=== PATIENT | male | born 1950 | race Caucasian/White ===

== ENCOUNTER → 2017-08-04 | Outpatient (CLI) | payer MEDICARE ==
[~2017-08-04] MED LIST: CLARITIN10 MG PO; HYDROCODONE BIT1 T11 PO; KEFLEX500 M1 PO; MEDROL DOSEPAK4 MG PO; NAPROSYN500 MG PO
[2017-08-05 08:13] LABS: HEPATITIS B SURFACE AG Negative (Negative); HEPATITIS C VIRUS ANTIBODY <0.1 s/co (0.0-0.9)
== END | disposition home or self-care (01) ==
LOC: LAB 08:58
PROVIDERS: Specialist
DX: R53.83 Other fatigue (principal); Z79.899 Other long term (current) drug therapy

== ENCOUNTER 2017-08-24 13:12 | Inpatient (IN) | payer MEDICARE ==
[~2017-08-24] VITALS: Ht 172.7 cm; Wt 82.8 kg
--- NOTE | ~2017-08-24 | WRIGHTHP ---
[place], [place] PATIENT HISTORY AND PHYSICAL EXAM NAME: YONI HARRIS [facility] #: [id number] UNIT #: [id number] ROOM: 403 DOCTOR: LORENA MEDINA MD BIRTHDATE: [birth year] DOS: HISTORY OF PRESENT ILLNESS: The patient is 67-year-old, comes in with inability to walk. He underwent surgery on the , which was a fluoroscopic surgery of the left third digit of hand by Dr. Reyna at [place]. The patient states he has been having some discomfort in the left foot for a few days now. He thought it was gout and had taken his medications, but by Thursday morning he was unable to walk. He was unable to put any weight on his feet and he had to be brought, in wheeled in a wheelchair. He denies having any chest pains or palpitations. He does not have any fever, but he noticed some chills. Denies having any nausea, any emesis. PAST MEDICAL HISTORY: Significant for: 1. Psoriasis. 2. Psoriatic arthritis. 3. Gouty arthropathy with hyperuricemia. 4. Benign hypertension. 5. Primary osteoarthritis of digits. MEDICATIONS: That he is on are allopurinol, amlodipine, aspirin, hydrochlorothiazide, indomethacin, lisinopril, lovastatin, multivitamin, omeprazole, potassium, tamsulosin and vitamin D. SOCIAL HISTORY: Nonsmoker. PHYSICAL EXAMINATION: GENERAL: He is awake and alert and oriented. VITAL SIGNS: Blood pressure is 118/82, pulse of 78, respirations 20, temperature 99.1. LUNGS: Diminished breath sounds. No wheezes, rales or rhonchi heard. HEART: Regular. ABDOMEN: Obese, soft, nontender. EXTREMITIES: No swelling in the right foot. Left hand wrapped up and left foot is extremely swollen, red very warm to touch and quite painful including the left first metatarsal joint. ASSESSMENT AND PLAN: 1. Possible gouty arthropathy. The patient is ordered Indocin and IV steroids. 2. We will need to rule out osteomyelitis. ESR, CRP as well as an MRI of the left foot have been ordered. Of note is a white cell count is normal. 3. History of hyperuricemia. Continue allopurinol. 4. Benign hypertension, controlled. 5. History of psoriatic arthritis. The patient was on Enbrel for a long time, was discontinued a month ago because it was too expensive. This may have caused worsening of his symptoms. [place], [place] PATIENT HISTORY AND PHYSICAL EXAM NAME: YONI HARRIS UNIT #: [id number] ROOM: 403 DOCTOR: LORENA MEDINA MD BIRTHDATE: [birth year] LORENA MEDINA MD CM:HISPHYS:PATIENT HISTORY AND PHYSICAL EXAMINATION [id number] LORENA MEDINA MD 08/25/17 1219 interface
--- NOTE | ~2017-08-24 | DS ---
[place], [place] DISCHARGE SUMMARY NAME: YONI HARRIS [facility] #: [id number] UNIT #: [id number] ROOM: 403 DOCTOR: LORENA MEDINA MD BIRTHDATE: [birth year] DOS: 08/26/2017 DIAGNOSES: 1. Acute gouty arthropathy, left foot. 2. History of psoriasis with psoriatic arthritis. 3. Hyperuricemia. 4. Benign hypertension. 5. Primary osteoarthritis of the digits, status post fluoroscopy surgery of the third digit last week. DISCHARGE MEDICATIONS: Prednisone tapering dose down to 2.5 mg daily, omeprazole 20 daily, lisinopril 5 b.i.d., hydrochlorothiazide 12.5 daily, Flomax 0.4 daily, allopurinol 100 daily, vitamin D 400 units daily, aspirin 81 daily, amlodipine 5 daily, lovastatin 10 daily, potassium 99 mg daily, multivitamin 1 tablet daily, and indomethacin 25 mg twice daily for 5 days. HOSPITAL COURSE: The patient is 67 years old, very well known to us, comes in with extreme pain in his left foot, inability to walk. In fact, he had to crawl into the bathroom and he was wheeled into the office because he was unable to walk. After the evaluation, was found to have significant swelling and redness of the left foot and the suspicion of osteomyelitis was admitted to the patient. After admission, the patient underwent MRI of the leg, CRP, ESR as well as complete blood work and also was placed on IV steroids as well as Indocin. Within 24 hours, the patient's symptoms have improved remarkably and he is finally able to walk without much difficulty. Dr. Fay was consulted who agreed on the treatment plan. The patient is stable this morning. The plan is to discharge him to home today. Follow up as an outpatient. LORENA MEDINA MD CM:DB 2 5 LORENA MEDINA MD 08/26/17926 interface
[2017-08-24 13:30] VITALS: BP 138/99
--- NOTE | 2017-08-24 14:56 | NUR ---
Time: 1414 A 67 year old MALE admitted to under services of DR. ADAM SMITH,LORENA. Pt. arrived via wheel chair from [place]. Chief complaint: PATIENT COMPLAINS OF PAIN, EDEMA AND WARMTH IN LEFT FOOT AND TOES. LUIS HEAD
[2017-08-24 16:00] VITALS: BP 131/78
[2017-08-24] MEDS ORDERED: PRILOSEC20 M1 PO (16:21)
[2017-08-24] MEDS ORDERED: ZESTRIL,PRINIVIL5 MG PO (16:23)
[2017-08-24] MEDS ORDERED: HYDR25T PO (16:25)
[2017-08-24] MEDS ORDERED: FLOMAX0.4 MG PO (16:26)
[2017-08-24] MEDS ORDERED: ZYLOPRIM100 MG PO (16:27)
[2017-08-24] MEDS ORDERED: VITAMIN D400 I1 PO (16:29)
[2017-08-24] MEDS ORDERED: ALEVE220 MG PO (16:30)
--- NOTE | 2017-08-24 16:30 | NUR ---
DR MEDINA WAS NOTIFIED THAT PATIENTS MEDICATION LLIST WAS IN THE CHART FOR APPROVAL. DR MEDINA ACKNOWLEDGED AND STATED TO GET A CBC. CMP, ESR AND CRP IN AM, REG DIET, MRI OF LEFT FOOT, INDOCIN 25MG BID, SOLUMEDROL 30MG BID AND CONSULT DR TORRES. JANINA PLACED IN CHART.
[2017-08-24] MEDS ORDERED: ASPIRIN CHILDRE81 MG PO (16:32)
[2017-08-24] MEDS ORDERED: NORVASC5 MG PO (16:33)
[2017-08-24] MEDS ORDERED: LOVASTATIN10 MG PO (16:34)
[2017-08-24] MEDS ORDERED: POTASSIUM99 M5 PO (16:35)
[2017-08-24] MEDS ORDERED: THERA-TABS1 EACH PO (16:42)
--- NOTE | 2017-08-24 17:00 | NUR ---
DR TORRES WAS CALLED FOR THE CONSULT, NO ANSWER AND NO MESSAGE LEFT D/T NO ANSWERING MACHINE.
[2017-08-24] MEDS ORDERED: INDOMETHACIN25 M1 PO (17:10)
[2017-08-24] MEDS ORDERED: SOLU-MEDRO40 MG/1 ML PO (17:13)
[2017-08-24 20:00] VITALS: BP 114/64
--- NOTE | 2017-08-24 20:45 | NUR ---
DR. MEDINA NOTIFIED OF PT REQUESTING PAIN MED. N.O. RCVD FOR TORADOL 30MG IVP X1 NOW, NORCO 7.5MG PO QID PRN PAIN, AND TO CHANGE ESR, CRP LABS TO STAT.
--- NOTE | 2017-08-24 21:10 | NUR ---
PT MEDICATED WITH ONE TIME DOSE OF TORADOL IVP ORDERED FOR C/O LEFT FOOT PAIN 02/28. WILL CONT. TO MONITOR.
--- NOTE | 2017-08-24 22:46 | NUR ---
PT STATES THAT LEFT FOOT PAIN IS NOW 3/10. RESTING COMFORTABLY IN BED.
[2017-08-25] VITALS: BP 118/82
--- NOTE | 2017-08-25 04:45 | NUR ---
24 HR chart check completed.
--- NOTE | 2017-08-25 06:32 | NUR ---
DR. TORRES'S ANSWERING SERVICE CALLED WITH NEW CONSULT.
[2017-08-25 06:41] LABS: BASO % 0.3 % (0.0-1.0); HEMOGLOBIN 13.9 g/dl (14.0-18.0); LYMPH # 0.7 10*3/uL (1.3-4.4); LYMPH % 8.5 % (27.0-41.0); MEAN CORPUSCULAR HGB 31.9 pg (27.0-31.0); MEAN CORPUSCULAR HGB CONC 33.9 g/dl (33.0-37.0); MEAN PLATELET VOLUME 8.9 fl (9.6-12.3); MONO # 0.2 10*3/uL (0.1-1.0); NEUT % 87.9 % (47.0-73.0); PLATELET COUNT AUTOMATED 474 10*3/uL (130-400); RED BLOOD COUNT 4.36 10*6/uL (4.50-5.90); RED CELL DISTRI WIDTH 12.6 % (0-14.5)
[2017-08-25 07:03] LABS: ALBUMIN 3.1 gm/dl (3.1-4.5); ALKALINE PHOSPHATASE 74 U/L (45-117); BUN 18 mg/dl (7-24); CHLORIDE 99 mmol/L (98-107); CREATININE 0.91 mg/dL (0.70-1.30); POTASSIUM 4.4 mmol/L (3.5-5.1); SGOT/AST 14 IU/L (3-35); SGPT/ALT 23 U/L (12-78); SODIUM 137 mmol/L (136-145); TOTAL PROTEIN 7.4 gm/dL (6.4-8.2)
[2017-08-25 08:00] VITALS: BP 137/89
--- NOTE | 2017-08-25 08:30 | NUR ---
Regrader in to talk to patient. Patient states lives at HOME with HIS IWFE. There are 6 steps in the home. Physician: DR MEDINA Pharmacy: [facility] Home health services: NONE Patient's level of ADLs: INDEPENDENT Patient has working utilities: YES DME: [facility] Follow-up physician's appointment after d/c: PREFERS TO MAKE HIS OWN APPT Does patient want to access PORTAL?: Discharge plan HOME. GERMAINE DIOR I HAVE ASKED DIETARY TO GIVE PT INSTRUCTIONS FOR FOODS TO AVOID WITH GOUT
--- NOTE | 2017-08-25 15:40 | NUR ---
Nutritional Support Services Note: Discussing with pt diet for gout. Copy given and discussed with pt. Pt drinks alcohol daily, discouraged alcohol use. Encouraged follow up if needed. Risa Arredondo
[2017-08-25 16:00] VITALS: BP 129/78
[2017-08-26] VITALS: BP 130/68
--- NOTE | 2017-08-26 04:03 | NUR ---
PATIENT ASLEEP IN BED AT THIS TIME. RESPIRATIONS EASY. NO S/S OF DISTRESS NOTED. WILL MONITOR. CALL LIGHT LEFT IN REACH.
[2017-08-26 08:00] VITALS: BP 134/75
[2017-08-26] MEDS ORDERED: PREDNISONE5 MG PO (08:11)
[2017-08-26] MEDS ORDERED: INDOMETHACIN25 M1 PO (08:11)
--- NOTE | 2017-08-26 10:40 | NUR ---
Discharge instructions reviewed with patient/family. Patient receptive and verbalizes understanding. Follow-up care arranged. Written instructions given to patient/family. SUZETTE HERNANDEZ
== END 2017-08-26 10:40 | disposition home or self-care (01) | DRG 554 ==
LOC: 4E 13:12
PROVIDERS: ADMIT Internal Medicine
DX: M10.072 Idiopathic gout, left ankle and foot (principal); L40.50 Arthropathic psoriasis, unspecified; M86.8X7 Other osteomyelitis, ankle and foot; I10 Essential (primary) hypertension; M19.049 Primary osteoarthritis, unspecified hand; Z91.09 Other allergy status, other than to drugs and biological substances; Z79.82 Long term (current) use of aspirin; Z79.899 Other long term (current) drug therapy

== ENCOUNTER → 2017-11-11 | Outpatient (CLI) | payer MEDICARE ==
[~2017-11-11] MED LIST changes: +ALEVE220 MG PO; +ASPIRIN CHILDRE81 MG PO; +FLOMAX0.4 MG PO; +HYDR25T PO; +INDOMETHACIN25 M1 PO; +LOVASTATIN10 MG PO; +NORVASC5 MG PO; +POTASSIUM99 M5 PO; +PREDNISONE5 MG PO; +PRILOSEC20 M1 PO; +SOLU-MEDRO40 MG/1 ML PO; +THERA-TABS1 EACH PO; +VITAMIN D400 I1 PO; +ZESTRIL,PRINIVIL5 MG PO; +ZYLOPRIM100 MG PO
== END | disposition home or self-care (01) ==
LOC: RAD 14:38
DX: M16.12 Unilateral primary osteoarthritis, left hip (principal); M16.11 Unilateral primary osteoarthritis, right hip; M19.072 Primary osteoarthritis, left ankle and foot; M10.9 Gout, unspecified; M79.672 Pain in left foot

== ENCOUNTER → 2018-02-05 | Outpatient (CLI) | payer MEDICARE ==
[2018-02-05 13:52] LABS: URIC ACID 6.1 mg/dL (3.5-7.2)
[2018-02-06 05:11] LABS: TOTAL PROTEIN, SERUM 6.5 g/dL (6.0-8.5)
[2018-02-08 15:07] LABS: A/G RATIO 1.3 (0.7-1.7); ALBUMIN 3.7 g/dL (2.9-4.4); ALPHA-1-GLOBULIN 0.2 g/dL (0.0-0.4); ALPHA-2-GLOBULIN 0.7 g/dL (0.4-1.0); BETA GLOBULIN 1.1 g/dL (0.7-1.3); GAMMA GLOBULIN 0.8 g/dL (0.4-1.8); GLOBULIN, TOTAL 2.8 g/dL (2.2-3.9); M-SPIKE Not Observed g/dL (Not Observed)
[2018-02-10 10:04] LABS: HLA-B27 ANTIGEN Negative (.)
== END | disposition home or self-care (01) ==
LOC: LAB 13:03
PROVIDERS: Internal Medicine Rheumatology
DX: M19.031 Primary osteoarthritis, right wrist (principal); M16.0 Bilateral primary osteoarthritis of hip; M19.072 Primary osteoarthritis, left ankle and foot; M19.071 Primary osteoarthritis, right ankle and foot; M25.552 Pain in left hip; M25.551 Pain in right hip; E79.0 Hyperuricemia without signs of inflammatory arthritis and tophaceous disease; L40.9 Psoriasis, unspecified

== ENCOUNTER → 2018-07-23 | Outpatient (CLI) | payer MEDICARE ==
[2018-07-23 16:21] LABS: BASO # 0.1 10*3/uL (0.0-0.1); BASO % 1.1 % (0.0-1.0); EOS # 0.3 10*3/uL (0.0-0.4); EOS % 3.9 % (1.0-4.0); HEMATOCRIT 40.3 % (42.0-52.0); HEMOGLOBIN 13.8 g/dl (14.0-18.0); LYMPH # 1.5 10*3/uL (1.3-4.4); LYMPH % 20.2 % (27.0-41.0); MEAN CELL VOLUME 95.7 fl (80.0-94.0); MEAN CORPUSCULAR HGB 32.8 pg (27.0-31.0); MEAN CORPUSCULAR HGB CONC 34.2 g/dl (33.0-37.0); MEAN PLATELET VOLUME 9.3 fl (9.6-12.3); MONO # 0.7 10*3/uL (0.1-1.0); NEUT # 4.9 10*3/uL (2.3-7.9); NEUT % 65.7 % (47.0-73.0); PLATELET COUNT AUTOMATED 484 10*3/uL (130-400); RED BLOOD COUNT 4.21 10*6/uL (4.50-5.90); RED CELL DISTRI WIDTH 13.6 % (0-14.5); WHITE BLOOD COUNT 7.5 10*3/uL (4.8-10.8)
[2018-07-23 16:49] LABS: ALBUMIN 3.8 gm/dl (3.1-4.5); ALKALINE PHOSPHATASE 60 U/L (45-117); BILIRUBIN, DIRECT 0.1 mg/dL (0.0-0.2); BUN 16 mg/dl (7-24); CHLORIDE 104 mmol/L (98-107); CREATININE 0.82 mg/dL (0.70-1.30); POTASSIUM 3.9 mmol/L (3.5-5.1); SGOT/AST 21 IU/L (3-35); SGPT/ALT 29 U/L (12-78); SODIUM 141 mmol/L (136-145); TOTAL PROTEIN 6.9 gm/dL (6.4-8.2)
[2018-07-24 07:06] LABS: HEPATITIS B SURFACE AG Negative (Negative); HEPATITIS C VIRUS ANTIBODY <0.1 s/co (0.0-0.9)
[2018-07-29 06:10] LABS: TB1 Ag VALUE 0.02 IU/mL (.)
== END | disposition home or self-care (01) ==
LOC: LAB 15:08
PROVIDERS: Specialist
DX: R53.83 Other fatigue (principal); Z79.899 Other long term (current) drug therapy

== ENCOUNTER → 2019-05-13 | Outpatient (CLI) | payer MEDICARE | END | disposition home or self-care (01) | LOC: MRI 10:00 | DX: R51 Headache (principal); R42 Dizziness and giddiness; R26.89 Other abnormalities of gait and mobility; I10 Essential (primary) hypertension; I67.82 Cerebral ischemia ==

== ENCOUNTER → 2019-05-19 | Outpatient (CLI) | payer MEDICARE | END | disposition home or self-care (01) | LOC: US 13:56 | DX: I65.23 Occlusion and stenosis of bilateral carotid arteries (principal) ==

== ENCOUNTER → 2019-07-07 | Outpatient (CLI) | payer MEDICARE ==
[2019-07-07 14:13] LABS: BASO # 0.1 10*3/uL (0.0-0.1); BASO % 1.2 % (0.0-1.0); EOS # 0.3 10*3/uL (0.0-0.4); EOS % 3.4 % (1.0-4.0); HEMATOCRIT 42.7 % (42.0-52.0); HEMOGLOBIN 14.3 g/dl (14.0-18.0); LYMPH # 1.5 10*3/uL (1.3-4.4); LYMPH % 20.7 % (27.0-41.0); MEAN CELL VOLUME 97.9 fl (80.0-94.0); MEAN CORPUSCULAR HGB 32.8 pg (27.0-31.0); MEAN CORPUSCULAR HGB CONC 33.5 g/dl (33.0-37.0); MEAN PLATELET VOLUME 9.5 fl (9.6-12.3); MONO # 0.6 10*3/uL (0.1-1.0); MONO % 8.7 % (3.0-9.0); NEUT # 4.9 10*3/uL (2.3-7.9); NEUT % 65.9 % (47.0-73.0); PLATELET COUNT AUTOMATED 547 10*3/uL (130-400); RED BLOOD COUNT 4.36 10*6/uL (4.50-5.90); RED CELL DISTRI WIDTH 13.2 % (0-14.5); WHITE BLOOD COUNT 7.4 10*3/uL (4.8-10.8)
[2019-07-07 14:28] LABS: ALBUMIN 3.7 gm/dl (3.1-4.5); BILIRUBIN, DIRECT 0.1 mg/dL (0.0-0.2); TOTAL PROTEIN 6.7 gm/dL (6.4-8.2)
[2019-07-07 14:29] LABS: ALBUMIN 3.7 gm/dl (3.1-4.5); BUN 15 mg/dl (7-24); CHLORIDE 104 mmol/L (98-107); CHOLESTEROL 146 mg/dL (<200); CREATININE 0.75 mg/dL (0.70-1.30); POTASSIUM 3.5 mmol/L (3.5-5.1); SGOT/AST 27 IU/L (3-35); SGPT/ALT 27 U/L (12-78); SODIUM 138 mmol/L (136-145); TOTAL PROTEIN 6.7 gm/dL (6.4-8.2); TRIGLYCERIDES 263 mg/dl (<150); VLDL CHOLESTEROL 53 mg/dL (6-40)
[2019-07-07 14:35] LABS: ALKALINE PHOSPHATASE 60 U/L (45-117); FREE T4 0.93 ng/dl (0.76-1.46); HDL CHOLESTEROL 40 mg/dl (40-60); LDL CHOLESTEROL 53 mg/dL (9-159); THYROID STIM HORMONE (HS) 0.807 uIU/ml (0.358-4.75)
[2019-07-07 14:52] LABS: VITAMIN D, 25-HYDROXY 24.8 ng/mL (30-100)
[2019-07-08 07:05] LABS: HEPATITIS B SURFACE AG Negative (Negative); HEPATITIS C VIRUS ANTIBODY 0.1 s/co (0.0-0.9)
[2019-07-10 01:06] LABS: TB1 Ag VALUE 0.02 IU/mL (.)
== END | disposition home or self-care (01) ==
LOC: LAB 12:36
PROVIDERS: Internal Medicine; Specialist
DX: Z12.5 Encounter for screening for malignant neoplasm of prostate (principal); I10 Essential (primary) hypertension; E78.2 Mixed hyperlipidemia; E55.9 Vitamin D deficiency, unspecified; D52.9 Folate deficiency anemia, unspecified; D51.9 Vitamin B12 deficiency anemia, unspecified; R53.83 Other fatigue; Z79.899 Other long term (current) drug therapy

== ENCOUNTER → 2020-07-11 | Outpatient (CLI) | payer MEDICARE ==
[2020-07-11 09:32] LABS: ALBUMIN 3.7 gm/dl (3.1-4.5); BUN 21 mg/dl (7-24); CHLORIDE 103 mmol/L (98-107); POTASSIUM 4.1 mmol/L (3.5-5.1); SODIUM 138 mmol/L (136-145)
[2020-07-11 09:33] LABS: BASO # 0.1 10*3/uL (0.0-0.1); BASO % 0.7 % (0.0-1.0); EOS # 0.2 10*3/uL (0.0-0.4); EOS % 1.9 % (1.0-4.0); HEMATOCRIT 45.6 % (42.0-52.0); LYMPH # 1.4 10*3/uL (1.3-4.4); LYMPH % 15.9 % (27.0-41.0); MEAN CELL VOLUME 94.4 fl (80.0-94.0); MEAN CORPUSCULAR HGB 32.3 pg (27.0-31.0); MEAN CORPUSCULAR HGB CONC 34.2 g/dl (33.0-37.0); MEAN PLATELET VOLUME 8.7 fl (9.6-12.3); MONO # 0.8 10*3/uL (0.1-1.0); MONO % 9.8 % (3.0-9.0); NEUT # 6.1 10*3/uL (2.3-7.9); NEUT % 71.5 % (47.0-73.0); PLATELET COUNT AUTOMATED 715 10*3/uL (130-400); RED BLOOD COUNT 4.83 10*6/uL (4.50-5.90); RED CELL DISTRI WIDTH 12.9 % (0-14.5); WHITE BLOOD COUNT 8.6 10*3/uL (4.8-10.8)
[2020-07-11 09:37] LABS: VITAMIN D, 25-HYDROXY 46.8 ng/mL (30-100)
[2020-07-11 09:42] LABS: ALKALINE PHOSPHATASE 71 U/L (45-117); CHOLESTEROL 177 mg/dL (<200); CREATININE 0.82 mg/dL (0.70-1.30); HDL CHOLESTEROL 50 mg/dl (40-60); LDL CHOLESTEROL 83 mg/dL (9-159); SGOT/AST 23 IU/L (3-35); SGPT/ALT 41 U/L (12-78); T3 UPTAKE 38 % (31-39); THYROID STIM HORMONE (HS) 0.982 uIU/ml (0.358-4.75); THYROXINE (T4) TOTAL 6.7 ug/dl (4.5-12.1); TOTAL PROTEIN 7.6 gm/dL (6.4-8.2); TRIGLYCERIDES 220 mg/dl (<150); VLDL CHOLESTEROL 44 mg/dL (6-40)
== END | disposition home or self-care (01) ==
LOC: LAB 08:15
PROVIDERS: ATTEND Internal Medicine
DX: Z12.5 Encounter for screening for malignant neoplasm of prostate (principal); Z00.00 Encounter for general adult medical examination without abnormal findings; I10 Essential (primary) hypertension; D51.9 Vitamin B12 deficiency anemia, unspecified; E78.2 Mixed hyperlipidemia; E55.9 Vitamin D deficiency, unspecified; N40.1 Benign prostatic hyperplasia with lower urinary tract symptoms

== ENCOUNTER → 2020-07-20 | Outpatient (CLI) | payer MEDICARE ==
[2020-07-21 08:07] LABS: HEP B CORE AB, IGM Negative (Negative); HEPATITIS B SURFACE AG Negative (Negative); HEPATITIS C VIRUS ANTIBODY <0.1 s/co (0.0-0.9)
[2020-07-24 21:10] LABS: TB1 Ag VALUE 0.03 IU/mL (.)
== END | disposition home or self-care (01) ==
LOC: LAB 14:02
PROVIDERS: ATTEND Specialist
DX: R53.83 Other fatigue (principal); Z79.899 Other long term (current) drug therapy

== ENCOUNTER → 2021-02-04 | Outpatient (CLI) | payer MEDICARE | END | disposition home or self-care (01) | LOC: LAB 11:53 | PROVIDERS: ATTEND Internal Medicine | DX: L40.52 Psoriatic arthritis mutilans (principal) ==

== ENCOUNTER → 2021-02-12 | Outpatient (CLI) | payer MEDICARE | END | disposition home or self-care (01) | LOC: LAB 15:26 | PROVIDERS: ATTEND Internal Medicine | DX: A69.20 Lyme disease, unspecified (principal) ==

== ENCOUNTER → 2021-04-22 | Outpatient (CLI) | payer MEDICARE ==
[2021-04-23 08:08] LABS: RHEUMATOID ARTHRITIS FACTOR <10.0 IU/mL (0.0-13.9)
[2021-04-23 13:06] LABS: ANTI-DSDNA ANTIBODIES <1 IU/mL (0-9)
[2021-04-24 00:06] LABS: CCP ANTIBODIES IGG/IGA 7 units (0-19)
== END | disposition home or self-care (01) ==
LOC: LAB 15:32
PROVIDERS: ATTEND Internal Medicine
DX: M19.012 Primary osteoarthritis, left shoulder (principal); I10 Essential (primary) hypertension; L40.9 Psoriasis, unspecified; M17.11 Unilateral primary osteoarthritis, right knee; M06.9 Rheumatoid arthritis, unspecified; R70.0 Elevated erythrocyte sedimentation rate; R76.0 Raised antibody titer; M21.822 Other specified acquired deformities of left upper arm; M25.561 Pain in right knee; M25.562 Pain in left knee

== ENCOUNTER → 2021-06-13 | Outpatient (CLI) | payer MEDICARE ==
[2021-06-13 10:49] LABS: BASO # 0.1 10*3/uL (0.0-0.1); BASO % 1.1 % (0.0-1.0); EOS # 0.1 10*3/uL (0.0-0.4); EOS % 1.5 % (1.0-4.0); HEMATOCRIT 41.3 % (42.0-52.0); LYMPH # 1.3 10*3/uL (1.3-4.4); LYMPH % 15.9 % (27.0-41.0); MEAN CELL VOLUME 96.7 fl (80.0-94.0); MEAN CORPUSCULAR HGB 32.6 pg (27.0-31.0); MEAN CORPUSCULAR HGB CONC 33.7 g/dl (33.0-37.0); MEAN PLATELET VOLUME 8.4 fl (9.6-12.3); MONO # 0.7 10*3/uL (0.1-1.0); MONO % 8.8 % (3.0-9.0); NEUT # 5.9 10*3/uL (2.3-7.9); NEUT % 72.3 % (47.0-73.0); PLATELET COUNT AUTOMATED 598 10*3/uL (130-400); RED BLOOD COUNT 4.27 10*6/uL (4.50-5.90); RED CELL DISTRI WIDTH 13.5 % (0-14.5); WHITE BLOOD COUNT 8.2 10*3/uL (4.8-10.8)
[2021-06-13 11:23] LABS: ALBUMIN 3.6 gm/dl (3.1-4.5); BUN 15 mg/dl (7-24); CHLORIDE 104 mmol/L (98-107); POTASSIUM 3.3 mmol/L (3.5-5.1); SGOT/AST 16 IU/L (3-35); SGPT/ALT 33 U/L (12-78); SODIUM 140 mmol/L (136-145)
[2021-06-13 11:24] LABS: ALKALINE PHOSPHATASE 62 U/L (45-117); TOTAL PROTEIN 6.9 gm/dL (6.4-8.2)
[2021-06-14 09:07] LABS: HEP B CORE AB, IGM Negative (Negative); HEPATITIS B SURFACE AG Negative (Negative); HEPATITIS C VIRUS ANTIBODY <0.1 s/co (0.0-0.9)
[2021-06-17 15:06] LABS: TB1 Ag VALUE 0.03 IU/mL (.)
== END | disposition home or self-care (01) ==
LOC: LAB 10:29
PROVIDERS: ATTEND Specialist
DX: A63.0 Anogenital (venereal) warts (principal); R53.83 Other fatigue

== ENCOUNTER → 2022-10-29 | Outpatient (CLI) | payer MEDICARE ==
[2022-10-29 08:32] LABS: BASO # 0.1 10*3/uL (0.0-0.1); BASO % 1.2 % (0.0-1.0); EOS # 0.3 10*3/uL (0.0-0.4); EOS % 4.3 % (1.0-4.0); HEMATOCRIT 42.7 % (42.0-52.0); LYMPH # 1.8 10*3/uL (1.3-4.4); LYMPH % 26.6 % (27.0-41.0); MEAN CELL VOLUME 96.6 fl (80.0-94.0); MEAN CORPUSCULAR HGB CONC 34.2 g/dl (33.0-37.0); MEAN PLATELET VOLUME 8.4 fl (9.6-12.3); MONO # 0.7 10*3/uL (0.1-1.0); MONO % 10.8 % (3.0-9.0); NEUT # 3.9 10*3/uL (2.3-7.9); NEUT % 56.8 % (47.0-73.0); PLATELET COUNT AUTOMATED 543 10*3/uL (130-400); RED BLOOD COUNT 4.42 10*6/uL (4.50-5.90); RED CELL DISTRI WIDTH 13.2 % (0-14.5); WHITE BLOOD COUNT 6.8 10*3/uL (4.8-10.8)
[2022-10-29 08:45] LABS: ALKALINE PHOSPHATASE 56 U/L (46-116); BUN 21 mg/dl (9-23); CHLORIDE 99 mmol/L (98-107); LDH 218 U/L (120-246); POTASSIUM 4.6 mmol/L (3.4-5.1); SGPT/ALT 36 U/L (10-49); TOTAL PROTEIN 6.5 gm/dL (6.0-8.0)
== END | disposition home or self-care (01) ==
LOC: LAB 07:54
PROVIDERS: Internal Medicine Hematology & Oncology; ATTEND Internal Medicine
DX: I10 Essential (primary) hypertension (principal); D75.839 Thrombocytosis, unspecified

== ENCOUNTER → 2022-11-26 | Outpatient (CLI) | payer MEDICARE | END | disposition home or self-care (01) | LOC: US 00:48 | PROVIDERS: ATTEND Internal Medicine Hematology & Oncology | DX: D75.839 Thrombocytosis, unspecified (principal) ==

== ENCOUNTER → 2022-12-04 | Outpatient (CLI) | payer MEDICARE ==
[2022-12-04 16:00] LABS: BASO # 0.1 10*3/uL (0.0-0.1); BASO % 1.1 % (0.0-1.0); EOS # 0.2 10*3/uL (0.0-0.4); EOS % 2.7 % (1.0-4.0); HEMATOCRIT 39.3 % (42.0-52.0); LYMPH # 2.1 10*3/uL (1.3-4.4); LYMPH % 29.6 % (27.0-41.0); MEAN CELL VOLUME 95.4 fl (80.0-94.0); MEAN CORPUSCULAR HGB 33.7 pg (27.0-31.0); MEAN CORPUSCULAR HGB CONC 35.4 g/dl (33.0-37.0); MEAN PLATELET VOLUME 8.4 fl (9.6-12.3); MONO # 0.6 10*3/uL (0.1-1.0); NEUT # 4.1 10*3/uL (2.3-7.9); NEUT % 57.5 % (47.0-73.0); PLATELET COUNT AUTOMATED 622 10*3/uL (130-400); RED BLOOD COUNT 4.12 10*6/uL (4.50-5.90); RED CELL DISTRI WIDTH 13.4 % (0-14.5); WHITE BLOOD COUNT 7.1 10*3/uL (4.8-10.8)
== END | disposition home or self-care (01) ==
LOC: LAB 15:20
PROVIDERS: ATTEND Physician Assistant
DX: D47.3 Essential (hemorrhagic) thrombocythemia (principal); D75.839 Thrombocytosis, unspecified

== ENCOUNTER → 2022-12-12 | Outpatient (CLI) | payer MEDICARE ==
[2022-12-12 11:44] LABS: BASO # 0.1 10*3/uL (0.0-0.1); BASO % 1.4 % (0.0-1.0); EOS # 0.2 10*3/uL (0.0-0.4); EOS % 3.6 % (1.0-4.0); HEMATOCRIT 38.3 % (42.0-52.0); LYMPH # 1.8 10*3/uL (1.3-4.4); LYMPH % 29.9 % (27.0-41.0); MEAN CELL VOLUME 97.7 fl (80.0-94.0); MEAN CORPUSCULAR HGB 33.7 pg (27.0-31.0); MEAN CORPUSCULAR HGB CONC 34.5 g/dl (33.0-37.0); MEAN PLATELET VOLUME 8.5 fl (9.6-12.3); MONO # 0.5 10*3/uL (0.1-1.0); MONO % 8.1 % (3.0-9.0); NEUT # 3.4 10*3/uL (2.3-7.9); NEUT % 56.8 % (47.0-73.0); PLATELET COUNT AUTOMATED 533 10*3/uL (130-400); RED BLOOD COUNT 3.92 10*6/uL (4.50-5.90); RED CELL DISTRI WIDTH 14.4 % (0-14.5); WHITE BLOOD COUNT 5.9 10*3/uL (4.8-10.8)
== END | disposition home or self-care (01) ==
LOC: LAB 11:01
PROVIDERS: ATTEND Physician Assistant
DX: D47.3 Essential (hemorrhagic) thrombocythemia (principal); D75.839 Thrombocytosis, unspecified

== ENCOUNTER → 2022-12-18 | Outpatient (CLI) | payer MEDICARE ==
[2022-12-18 09:02] LABS: BASO # 0.1 10*3/uL (0.0-0.1); BASO % 1.2 % (0.0-1.0); EOS # 0.2 10*3/uL (0.0-0.4); EOS % 3.7 % (1.0-4.0); HEMATOCRIT 40.1 % (42.0-52.0); LYMPH # 1.7 10*3/uL (1.3-4.4); LYMPH % 30.5 % (27.0-41.0); MEAN CELL VOLUME 96.4 fl (80.0-94.0); MEAN CORPUSCULAR HGB 33.9 pg (27.0-31.0); MEAN CORPUSCULAR HGB CONC 35.2 g/dl (33.0-37.0); MEAN PLATELET VOLUME 8.5 fl (9.6-12.3); MONO # 0.6 10*3/uL (0.1-1.0); MONO % 10.9 % (3.0-9.0); NEUT % 53.3 % (47.0-73.0); PLATELET COUNT AUTOMATED 584 10*3/uL (130-400); RED BLOOD COUNT 4.16 10*6/uL (4.50-5.90); RED CELL DISTRI WIDTH 15.3 % (0-14.5); WHITE BLOOD COUNT 5.7 10*3/uL (4.8-10.8)
== END | disposition home or self-care (01) ==
LOC: LAB 08:17
PROVIDERS: ATTEND Physician Assistant
DX: D47.3 Essential (hemorrhagic) thrombocythemia (principal); D75.839 Thrombocytosis, unspecified

== ENCOUNTER → 2022-12-25 | Outpatient (CLI) | payer MEDICARE ==
[2022-12-25 13:06] LABS: BASO # 0.1 10*3/uL (0.0-0.1); BASO % 1.5 % (0.0-1.0); EOS # 0.1 10*3/uL (0.0-0.4); EOS % 1.3 % (1.0-4.0); HEMATOCRIT 38.3 % (42.0-52.0); LYMPH # 1.8 10*3/uL (1.3-4.4); LYMPH % 32.9 % (27.0-41.0); MEAN CELL VOLUME 99.2 fl (80.0-94.0); MEAN CORPUSCULAR HGB 34.5 pg (27.0-31.0); MEAN CORPUSCULAR HGB CONC 34.7 g/dl (33.0-37.0); MEAN PLATELET VOLUME 8.2 fl (9.6-12.3); MONO # 0.6 10*3/uL (0.1-1.0); MONO % 10.9 % (3.0-9.0); NEUT # 2.9 10*3/uL (2.3-7.9); NEUT % 53.2 % (47.0-73.0); PLATELET COUNT AUTOMATED 463 10*3/uL (130-400); RED BLOOD COUNT 3.86 10*6/uL (4.50-5.90); RED CELL DISTRI WIDTH 15.7 % (0-14.5); WHITE BLOOD COUNT 5.4 10*3/uL (4.8-10.8)
== END | disposition home or self-care (01) ==
LOC: LAB 12:51
PROVIDERS: ATTEND Physician Assistant
DX: D47.3 Essential (hemorrhagic) thrombocythemia (principal); D75.839 Thrombocytosis, unspecified

== ENCOUNTER → 2023-02-24 | Outpatient (CLI) | payer MEDICARE | END | disposition home or self-care (01) | LOC: MRI 01-05 14:00 → LAB 10:14 | PROVIDERS: ATTEND Internal Medicine | DX: I67.82 Cerebral ischemia (principal) ==

== ENCOUNTER → 2023-04-02 | Outpatient (CLI) | payer MEDICARE ==
[2023-04-02 09:22] LABS: RETICULOCYTE % 1.62 % (0.50-2.50)
[2023-04-02 09:49] LABS: HEMATOCRIT 33.1 % (42.0-52.0); MEAN CELL VOLUME 112.2 fl (80.0-94.0); MEAN PLATELET VOLUME 8.5 fl (9.6-12.3); PLATELET COUNT AUTOMATED 308 10*3/uL (130-400); RED BLOOD COUNT 2.95 10*6/uL (4.50-5.90); RED CELL DISTRI WIDTH 13.7 % (0-14.5); WHITE BLOOD COUNT 2.6 10*3/uL (4.8-10.8)
[2023-04-02 09:51] LABS: MEAN CORPUSCULAR HGB CONC 37.5 g/dl (33.0-37.0)
[2023-04-02 09:52] LABS: MANUAL DIFF REFLEX YES
[2023-04-02 09:58] LABS: BASOPHILS 2 % (0-1); PLATELET SUFFICIENCY NORMAL (NORMAL); ROULEAUX SLIGHT; TOTAL CELLS COUNTED 100 #CELLS
[2023-04-02 10:01] LABS: ALKALINE PHOSPHATASE 60 U/L (46-116); BUN 14 mg/dl (9-23); CHLORIDE 103 mmol/L (98-107); CHOLESTEROL 118 mg/dL (<200); FREE T4 1.13 ng/dl (0.89-1.76); LDL CHOLESTEROL 55 mg/dL (9-159); POTASSIUM 3.7 mmol/L (3.4-5.1); SGPT/ALT 26 U/L (10-49); TOTAL PROTEIN 6.4 gm/dL (6.0-8.0); TRIGLYCERIDES 108 mg/dl (<150)
[2023-04-02 10:16] LABS: VITAMIN D, 25-HYDROXY 52.7 ng/mL (30-100)
== END | disposition home or self-care (01) ==
LOC: LAB 08:51
PROVIDERS: Internal Medicine; ATTEND Physician Assistant
DX: Z12.5 Encounter for screening for malignant neoplasm of prostate (principal); Z13.0 Encounter for screening for diseases of the blood and blood-forming organs and certain disorders involving the immune mechanism; Z13.1 Encounter for screening for diabetes mellitus; Z13.228 Encounter for screening for other metabolic disorders; Z13.29 Encounter for screening for other suspected endocrine disorder; Z13.6 Encounter for screening for cardiovascular disorders; Z13.89 Encounter for screening for other disorder; Z13.9 Encounter for screening, unspecified; I10 Essential (primary) hypertension; E55.9 Vitamin D deficiency, unspecified

== ENCOUNTER → 2023-04-06 | Outpatient (CLI) | payer MEDICARE | END | disposition home or self-care (01) | LOC: US 07:59 | PROVIDERS: ATTEND Internal Medicine | DX: I65.23 Occlusion and stenosis of bilateral carotid arteries (principal) ==

== ENCOUNTER → 2023-05-08 | Outpatient (CLI) | payer MEDICARE ==
[2023-05-08 14:20] LABS: HEMATOCRIT 32.3 % (42.0-52.0); MEAN CELL VOLUME 119.6 fl (80.0-94.0); MEAN CORPUSCULAR HGB 44.1 pg (27.0-31.0); MEAN CORPUSCULAR HGB CONC 36.8 g/dl (33.0-37.0); MEAN PLATELET VOLUME 8.7 fl (9.6-12.3); PLATELET COUNT AUTOMATED 251 10*3/uL (130-400); RED CELL DISTRI WIDTH 12.9 % (0-14.5); WHITE BLOOD COUNT 4.1 10*3/uL (4.8-10.8)
[2023-05-08 14:21] LABS: MANUAL DIFF REFLEX YES
[2023-05-08 15:13] LABS: ATYPICAL LYMPHS 2 % (0-0); PLATELET SUFFICIENCY NORMAL (NORMAL); TOTAL CELLS COUNTED 100 #CELLS
[2023-05-08 15:14] LABS: POLYCHROMASIA SLIGHT
== END | disposition home or self-care (01) ==
LOC: LAB 13:34
PROVIDERS: ATTEND Physician Assistant
DX: D47.3 Essential (hemorrhagic) thrombocythemia (principal); D75.839 Thrombocytosis, unspecified

== ENCOUNTER → 2023-08-05 | Outpatient (CLI) | payer MEDICARE | END | disposition home or self-care (01) | LOC: RAD 11:28 | PROVIDERS: ATTEND Internal Medicine | DX: J44.9 Chronic obstructive pulmonary disease, unspecified (principal) ==

== ENCOUNTER → 2023-08-18 | Outpatient (CLI) | payer MEDICARE | END | disposition home or self-care (01) | LOC: CARD 00:01 | PROVIDERS: ATTEND Internal Medicine | DX: R06.02 Shortness of breath (principal) ==

== ENCOUNTER → 2024-03-09 | Outpatient (CLI) | payer MEDICARE ==
[2024-03-09 07:32] LABS: HEMATOCRIT 38.1 % (42.0-52.0); MEAN CELL VOLUME 109.5 fl (80.0-94.0); MEAN CORPUSCULAR HGB 39.7 pg (27.0-31.0); MEAN CORPUSCULAR HGB CONC 36.2 g/dl (33.0-37.0); MEAN PLATELET VOLUME 8.3 fl (9.6-12.3); PLATELET COUNT AUTOMATED 295 10*3/uL (130-400); RED BLOOD COUNT 3.48 10*6/uL (4.50-5.90); RED CELL DISTRI WIDTH 12.6 % (0-14.5); WHITE BLOOD COUNT 4.4 10*3/uL (4.8-10.8)
[2024-03-09 07:39] LABS: MANUAL DIFF REFLEX YES
[2024-03-09 08:42] LABS: BASOPHILS 1 % (0-1); TOTAL CELLS COUNTED 100 #CELLS
[2024-03-09 08:43] LABS: PLATELET SUFFICIENCY NORMAL (NORMAL)
== END ==
LOC: LAB 07:12
PROVIDERS: ATTEND Physician Assistant
DX: D72.819 Decreased white blood cell count, unspecified (principal); D75.839 Thrombocytosis, unspecified; D47.3 Essential (hemorrhagic) thrombocythemia; D64.9 Anemia, unspecified

== ENCOUNTER → 2024-08-05 | Outpatient (CLI) | payer MEDICARE ==
[2024-08-05 13:18] LABS: MEAN CELL VOLUME 110.1 fl (80.0-94.0); MEAN CORPUSCULAR HGB 38.7 pg (27.0-31.0); MEAN CORPUSCULAR HGB CONC 35.1 g/dl (33.0-37.0); MEAN PLATELET VOLUME 8.2 fl (9.6-12.3); PLATELET COUNT AUTOMATED 291 10*3/uL (130-400); RED BLOOD COUNT 3.36 10*6/uL (4.50-5.90); RED CELL DISTRI WIDTH 12.6 % (0-14.5); WHITE BLOOD COUNT 6.1 10*3/uL (4.8-10.8)
[2024-08-05 13:20] LABS: MANUAL DIFF REFLEX YES
[2024-08-05 13:41] LABS: ATYPICAL LYMPHS 1 % (0-0); OVALOCYTES FEW; PLATELET SUFFICIENCY NORMAL (NORMAL); TOTAL CELLS COUNTED 100 #CELLS
[2024-08-05 13:44] LABS: VITAMIN D, 25-HYDROXY 59.9 ng/mL (30-100)
[2024-08-05 13:45] LABS: ALKALINE PHOSPHATASE 65 U/L (46-116); BUN 19 mg/dl (9-23); CHLORIDE 103 mmol/L (98-107); CHOLESTEROL 139 mg/dL (<200); FREE T4 1.22 ng/dl (0.89-1.76); LDL CHOLESTEROL 57 mg/dL (9-159); SGPT/ALT 44 U/L (5-49); TOTAL PROTEIN 6.8 gm/dL (6.0-8.0); TRIGLYCERIDES 90 mg/dl (<150)
== END | disposition home or self-care (01) ==
LOC: LAB 12:55
PROVIDERS: ATTEND Internal Medicine
DX: Z12.5 Encounter for screening for malignant neoplasm of prostate (principal); I10 Essential (primary) hypertension; I67.9 Cerebrovascular disease, unspecified; E78.2 Mixed hyperlipidemia; D47.3 Essential (hemorrhagic) thrombocythemia; E87.6 Hypokalemia; E55.9 Vitamin D deficiency, unspecified; E53.9 Vitamin B deficiency, unspecified

== ENCOUNTER → 2024-09-28 | Outpatient (CLI) | payer MEDICARE ==
[2024-09-28 15:26] LABS: HEMATOCRIT 37.6 % (42.0-52.0); MANUAL DIFF REFLEX YES; MEAN CELL VOLUME 111.6 fl (80.0-94.0); MEAN PLATELET VOLUME 8.6 fl (9.6-12.3); PLATELET COUNT AUTOMATED 348 10*3/uL (130-400); RED BLOOD COUNT 3.37 10*6/uL (4.50-5.90); RED CELL DISTRI WIDTH 12.4 % (0-14.5); WHITE BLOOD COUNT 7.3 10*3/uL (4.8-10.8)
[2024-09-28 16:11] LABS: ATYPICAL LYMPHS 1 % (0-0); BASOPHILS 1 % (0-1); PLATELET SUFFICIENCY NORMAL (NORMAL); TOTAL CELLS COUNTED 100 #CELLS
== END | disposition home or self-care (01) ==
LOC: LAB 14:36
PROVIDERS: ATTEND Internal Medicine Hematology & Oncology
DX: D75.839 Thrombocytosis, unspecified (principal); D47.3 Essential (hemorrhagic) thrombocythemia; D64.9 Anemia, unspecified; D72.819 Decreased white blood cell count, unspecified

== ENCOUNTER → 2025-04-04 | Outpatient (CLI) | payer MEDICARE ==
[2025-04-04 14:21] LABS: MEAN CELL VOLUME 108.1 fl (80.0-94.0); MEAN CORPUSCULAR HGB 38.7 pg (27.0-31.0); MEAN PLATELET VOLUME 8.3 fl (9.6-12.3); NUCLEATED RED BLOOD CELL 0.0 % (0.0-0.0); NUCLEATED RED BLOOD CELL 0.0 10*3/uL (0.0-0.0); PLATELET COUNT AUTOMATED 315 10*3/uL (130-400); RED CELL DISTRI WIDTH 13.1 % (0-14.5)
[2025-04-04 14:22] LABS: MANUAL DIFF REFLEX YES
[2025-04-04 14:49] LABS: BASOPHILS 1 % (0-1)
[2025-04-04 14:54] LABS: PLATELET SUFFICIENCY NORMAL (NORMAL); STOMATOCYTE FEW
== END | disposition home or self-care (01) ==
LOC: LAB 13:56
PROVIDERS: ATTEND Physician Assistant
DX: D47.3 Essential (hemorrhagic) thrombocythemia (principal); D64.9 Anemia, unspecified; D75.839 Thrombocytosis, unspecified; D72.819 Decreased white blood cell count, unspecified

== ENCOUNTER → 2025-04-18 | Outpatient (CLI) | payer MEDICARE | END | disposition home or self-care (01) | LOC: RAD 10:12 | PROVIDERS: ATTEND Internal Medicine | DX: M19.011 Primary osteoarthritis, right shoulder (principal); M25.511 Pain in right shoulder ==

== ENCOUNTER 2025-06-13 07:54 | Emergency (ER) | payer MEDICARE ==
[~2025-06-13] VITALS: Ht 172.7 cm; Wt 68.0 kg
[2025-06-13 08:00] VITALS: BP 122/60
[2025-06-13] MEDS ORDERED: Tdap Vaccine 0.5 ML SYR (Adult Vaccine) IM ONE (09:05)
[2025-06-13] MEDS ORDERED: Lidocaine Hydrochloride 30 ML VIAL SC ONE (09:30)
== END 2025-06-13 11:00 | disposition home or self-care (01) ==
LOC: ED 07:54
DX: S81.012A Laceration without foreign body, left knee, initial encounter (principal); I10 Essential (primary) hypertension; K21.9 Gastro-esophageal reflux disease without esophagitis; M10.9 Gout, unspecified; Z98.890 Other specified postprocedural states; Z87.442 Personal history of urinary calculi; W01.0XXA Fall on same level from slipping, tripping and stumbling without subsequent striking against object, initial encounter; Y93.89 Activity, other specified; Y92.89 Other specified places as the place of occurrence of the external cause; Y99.8 Other external cause status

== ENCOUNTER 2025-06-20 08:07 | Emergency (ER) | payer MEDICARE ==
[~2025-06-20] VITALS: Ht 172.7 cm; Wt 69.4 kg
[2025-06-20 08:24] VITALS: BP 133/67
[2025-06-20] MEDS ORDERED: VIBRAMYCIN100 MG PO ×2 (08:39→08:48)
== END 2025-06-20 08:51 | disposition home or self-care (01) ==
LOC: ED 08:07
DX: S81.012D Laceration without foreign body, left knee, subsequent encounter (principal); L03.116 Cellulitis of left lower limb; Z48.02 Encounter for removal of sutures; Z91.048 Other nonmedicinal substance allergy status; Z79.82 Long term (current) use of aspirin; Z79.899 Other long term (current) drug therapy; Z98.890 Other specified postprocedural states; Z87.442 Personal history of urinary calculi; X58.XXXD Exposure to other specified factors, subsequent encounter

== ENCOUNTER 2025-06-23 11:19 | Emergency (ER) | payer MEDICARE ==
[~2025-06-23 11:19] MED LIST changes: +VIBRAMYCIN100 MG PO
[2025-06-23 11:37] VITALS: BP 119/74
== END 2025-06-23 11:55 | disposition home or self-care (01) ==
LOC: ED 11:19
DX: S01.01XD Laceration without foreign body of scalp, subsequent encounter (principal); Z48.02 Encounter for removal of sutures; X58.XXXD Exposure to other specified factors, subsequent encounter

== ENCOUNTER → 2025-06-26 | Outpatient (CLI) | payer MEDICARE | END | disposition home or self-care (01) | LOC: WOUNDCARE 08:14 | PROVIDERS: ATTEND Nurse Practitioner Family | DX: S81.012A Laceration without foreign body, left knee, initial encounter (principal); S81.812A Laceration without foreign body, left lower leg, initial encounter; L03.116 Cellulitis of left lower limb; M19.90 Unspecified osteoarthritis, unspecified site; E78.00 Pure hypercholesterolemia, unspecified; K21.9 Gastro-esophageal reflux disease without esophagitis; I10 Essential (primary) hypertension; M10.9 Gout, unspecified; Z48.02 Encounter for removal of sutures; X58.XXXA Exposure to other specified factors, initial encounter; Y93.89 Activity, other specified; Y92.89 Other specified places as the place of occurrence of the external cause; Y99.8 Other external cause status ==

== ENCOUNTER → 2025-07-03 | Outpatient (CLI) | payer MEDICARE | END | disposition home or self-care (01) | LOC: WOUNDCARE 01:44 | PROVIDERS: ATTEND Nurse Practitioner Family | DX: S81.012D Laceration without foreign body, left knee, subsequent encounter (principal); S81.812D Laceration without foreign body, left lower leg, subsequent encounter; L03.116 Cellulitis of left lower limb; E78.00 Pure hypercholesterolemia, unspecified; I10 Essential (primary) hypertension; K21.9 Gastro-esophageal reflux disease without esophagitis; M19.90 Unspecified osteoarthritis, unspecified site; M10.9 Gout, unspecified; Z48.02 Encounter for removal of sutures; Z98.890 Other specified postprocedural states; Z79.82 Long term (current) use of aspirin; Z79.899 Other long term (current) drug therapy; X58.XXXD Exposure to other specified factors, subsequent encounter ==

== ENCOUNTER → 2025-07-14 | Outpatient (CLI) | payer MEDICARE | END | disposition home or self-care (01) | LOC: RAD 11:16 | PROVIDERS: ATTEND Internal Medicine | DX: M17.11 Unilateral primary osteoarthritis, right knee (principal); M25.561 Pain in right knee ==